=== PATIENT | male | born 1985 | race Caucasian/White ===

== ENCOUNTER → 2019-08-26 08:44 | Outpatient (CLI) | payer MEDICAID, SELFPAY ==
[2019-08-26 08:31] VITALS: BMI 45.6
--- NOTE | 2019-08-26 08:45 | RAD_ITS ---
STUDY: X-RAY - RIGHT WRIST REASON FOR EXAM: Male, 34 years old. FELL X 1.5 MONTHS TECHNIQUE: 3 view(s) of the wrist were obtained. COMPARISON: None. FINDINGS: Normal visualized distal radius and ulna. Normal radiocarpal articulation. Normal distal radioulnar articulation. Avulsion fracture dorsal to the wrist. Normal carpal articulations. Normal carpometacarpal articulation of the thumb. Normal second through fifth carpometacarpal articulations. Normal visualized metacarpal bones. The soft tissue structures are unremarkable. RAD/Wrist min 3 Views IMPRESSION: Probable triquetral fracture, age-indeterminate Electronically Signed: Dilan Stock MD at 16:58 EDT , Service support ,
== END ==
PROVIDERS: Referring Provider Orthopaedic Surgery; Visit Provider Orthopaedic Surgery
DX: M25.531 Pain in right wrist (principal)
CPT/HCPCS: 73110